=== PATIENT | male | born 1930 | race Hispanic/Latino ===

== ENCOUNTER 2018-05-31 18:56 | Emergency (ER) | payer MEDICARE, BC ==
[2018-05-31 20:17] VITALS: BMI 24.9
--- NOTE | 2018-05-31 20:25 | ED PDOC ---
Arrival/HPI - General Historian: Patient - History of Present Illness Narrative History of Present Illness (Text): 05/31/18 20:21 88M pmhx of AFib (on eliquis 2.5 BID) presents to the ED with a 3 day productive cough, fevers and fatigue. Pt saw Dr Diana in office of friday, was febrile, received Augmentin and has been taking it BID. Pt has not improved, got worse this evening and came to ED with his neighbor. Pt reports sick contacts from his nieces and nephews. ROS: Pos+ cough, fevers, chills, phlegm, fatigue, sick contacts, diarrhea x1, increased urine freq Neg - hemoptysis, sob, nausea, vomiting, abdominal pain, recent travel, Time/Duration: < week Symptom Onset: Gradual Symptom Course: Worsening Activities at Onset: Rest <David Spain - Last Filed: 05/31/18 20:44> <Don Hall - Last Filed: 06/01/18 19:54> - General Chief Complaint: Cough, Cold, Congestion Time Seen by Provider: 05/31/18 19:51 Past Medical History - Provider Review Nursing Documentation Reviewed: Yes - Cardiac Hx Atrial Fibrillation: Yes - Genitourinary/Gynecological Hx Prostate Problems: Yes (enlarged) - Psychiatric Hx Substance Use: No - Anesthesia Hx Anesthesia: Yes Hx Anesthesia Reactions: No <David Spain - Last Filed: 05/31/18 20:44> Family/Social History - Physician Review Nursing Documentation Reviewed: Yes Family/Social History: Unknown Family HX Smoking Status: Never Smoked Hx Alcohol Use: No Hx Substance Use: No <David Spain - Last Filed: 05/31/18 20:44> Family/Social History: No Known Family HX <Don Hall - Last Filed: 06/01/18 19:54> Allergies/Home Meds <David Spain - Last Filed: 05/31/18 20:44> <Don Hall - Last Filed: 06/01/18 19:54> Allergies/Adverse Reactions: Allergies No Known Allergies Allergy (Verified 05/31/18 20:15) Review of Systems - Physician Review All systems were reviewed & negative as marked: Yes - Review of Systems Constitutional: Fatigue, Fevers, Night Sweats Eyes: absent: Photophobia ENT: absent: Sore Throat Respiratory: Cough, Sputum. absent: SOB Cardiovascular: absent: Chest Pain, Palpitations, Syncope Gastrointestinal: Diarrhea (x1). absent: Abdominal Pain Genitourinary Male: Frequency Musculoskeletal: absent: Arthralgias, Myalgias Neurological: absent: Headache Endocrine: absent: Diaphoresis Psychiatric: Normal <David Spain - Last Filed: 05/31/18 20:44> Physical Exam Temperature: Febrile Blood Pressure: Normal Pulse: Tachycardic Respiratory Rate: Normal Appearance: Positive for: Non-Toxic Pain Distress: None Mental Status: Positive for: Alert and Oriented X 3 - Systems Exam Head: Present: Atraumatic, Normocephalic Pupils: Present: PERRL Extroacular Muscles: Present: EOMI Conjunctiva: Present: Normal. No: Injected Mouth: Present: Moist Mucous Membranes Pharnyx: No: ERYTHEMA Neck: Present: Normal Range of Motion Respiratory/Chest: Present: Decreased Breath Sounds (Left Lower Lobe) Cardiovascular: Present: Normal S1, S2, Irregular Rhythm, Tachycardic. No: Murmurs Back: Present: Normal Inspection Upper Extremity: Present: NORMAL PULSES, Capillary Refill < 2s Neurological: Present: GCS=15, CN II-XII Intact, Speech Normal Skin: Present: Warm, Pale Psychiatric: Present: Alert, Oriented x 3, Normal Concentration <David Spain - Last Filed: 05/31/18 20:44> Vital Signs Temp Pulse Resp BP Pulse Ox 05/31/18 18:57 100.5 F H 110 H 18 121/68 98 <Don Hall - Last Filed: 06/01/18 19:54> Medical Decision Making ED Course and Treatment: 05/31/18 20:37 #Possible CAP f/u CBC, CMP, VBG shock, UA, Rapid Flu, CXR #Hx of Afib f/u EKG - RAD Interpretation Radiology Orders: 05/31/18 20:17 CHEST PORTABLE [RAD] Stat - EKG Interpretation Interpreted by ED Physician: Yes Type: 12 lead EKG (98 BPM, A Fib) <David Spain - Last Filed: 05/31/18 20:44> ED Course and Treatment: Impression: Pt seen and evaluated with medical detailist. Aware and agree with HPI, clinical findings, plan, and management. Pt, whose past medical history includes atrial fibrillation, presented for productive cough, fever, and fatigue. Plan: -- EKG -- CXR -- Rapid influenza -- Labs, VBG, blood cultures -- Urinalysis -- Reassess and disposition - Lab Interpretations Lab Results: 05/31/18 20:30 05/31/18 20:30 Lab Results 05/31/18 21:30: Influenza Typ A,B (EIA) Negative for flu a/b 05/31/18 21:00: Urine Color Yellow, Urine Appearance Clear, Urine pH 6.0, Ur Specific Tropic 1.025, Urine Protein Negative, Urine Glucose (UA) Negative, Urine Ketones Negative, Urine Blood Negative, Urine Nitrate Negative, Urine Bilirubin Negative, Urine Urobilinogen 0.2, Ur Leukocyte Esterase Negative 05/31/18 20:30: Sodium 131 L, Chloride 96 L, Potassium 4.4, Carbon Dioxide 27, Anion Gap 12, BUN 18, Creatinine 0.7 L, Est GFR ( Amer) > 60, Est GFR (Non-Af Amer) > 60, Random Glucose 105, Calcium 8.8, Phosphorus 3.6, Magnesium 1.9, Total Bilirubin 0.6, AST 40, ALT 35, Alkaline Phosphatase 64, Total Protein 7.3, Albumin 4.3, Globulin 2.9, Albumin/Globulin Ratio 1.5 05/31/18 20:30: WBC 3.8 L, RBC 4.26, Hgb 13.3 L, Hct 38.9 L, MCV 91.3, MCH 31.2, MCHC 34.2, RDW 12.2, Plt Count 114 L, MPV 9.7, Gran % 71.0 H, Lymph % (Auto) 12.9 L, [place] % (Auto) 15.8 H, Eos % (Auto) 0.3 L, Baso % (Auto) 0.0, Gran # 2.69, Lymph # (Auto) 0.5 L, [place] # (Auto) 0.6, Eos # (Auto) 0.0, Baso # (Auto) 0.00 05/31/18 20:30: pO2 39, VBG pH 7.34, VBG pCO2 51.0, VBG HCO3 27.5, VBG Total CO2 29.1 H, VBG O2 Sat (Calc) 72.6 H, VBG Base Excess 0.9, VBG Potassium 4.1, Sodium 129.0 L, Chloride 95.0 L, Glucose 105, Lactate 0.8, FiO2 21.0, Venous Blood Potassium 4.1 - RAD Interpretation Radiology Orders: 05/31/18 20:17 CHEST PORTABLE [RAD] Stat - Medication Orders Current Medication Orders: Discontinued Medications Azithromycin (Zithromax) 500 mg PO ONCE STA; Protocol Stop: 05/31/18 22:40 <Don Hall - Last Filed: 06/01/18 19:54> - PA / MEDICAL STAFF SERVICES COORDINATOR / Resident Statement [facility] has reviewed & agrees with the documentation as recorded. / has examined the patient and agrees with the treatment plan. <Don Hall - Last Filed: 06/01/18 19:54> Disposition/Present on Arrival - Present on Arrival History of DVT/PE: No History of Uncontrolled Diabetes: No Urinary Catheter: No History of Decub. Ulcer: No History Surgical Site Infection Following: None <David Spain - Last Filed: 05/31/18 20:44> - Present on Arrival Any Indicators Present on Arrival: No History of DVT/PE: No - Disposition Have Diagnosis and Disposition been Completed?: Yes Disposition Time: 00:14 <Don Hall - Last Filed: 06/01/18 19:54> - Disposition Diagnosis: Bronchitis Disposition: HOME/ ROUTINE Condition: STABLE Prescriptions: Benzonatate [Tessalon Perles] 100 mg PO TID PRN #21 sgl PRN Reason: Cough Azithromycin [Zithromax] 250 mg PO DAILY #6 tab Referrals: Brian Diana MD [Primary Care Provider] - Follow up with primary Forms: [employer] (Samoan)
[2018-05-31 20:31] VITALS: BP 121/68; PULSE 110; RESP 18; TEMP 100.5; O2SAT 98
[2018-05-31 20:53] LABS: VENOUS BLOOD GAS BASE EXCESS 0.9 mmol/L (0.0-2.0); VENOUS BLOOD GAS PO2 39 mm/Hg (30-55); VENOUS BLOOD PH 7.34 (7.32-7.43)
[2018-05-31 21:01] LABS: EOS % 0.3 % (1.5-5.0); GRAN # 2.69 (1.4-6.5); HEMOGLOBIN 13.3 g/dL (14.0-18.0); LYMPH # 0.5 (1.2-3.4); LYMPH % 12.9 % (22.0-35.0); MEAN CELL VOLUME 91.3 fl (80.0-105.0); MEAN CORPUSCULAR HEMOGLOBIN 31.2 pg (25.0-35.0); MEAN CORPUSCULAR HGB CONC 34.2 g/dl (31.0-37.0); MEAN PLATELET VOLUME 9.7 fl (7.0-11.0); MONO # 0.6 (0.1-0.6); MONO % 15.8 % (1.0-6.0); RBC 4.26 10^6/uL (3.5-6.1); RED CELL DISTRIBUTION WIDTH 12.2 % (11.5-14.5); WHITE BLOOD COUNT 3.8 10^3/uL (4.5-11.0)
[2018-05-31 21:03] LABS: ALB/GLOB RATIO 1.5 (1.1-1.8); ALBUMIN 4.3 g/dL (3.0-4.8); ALT/SGPT 35 U/L (7-56); AST/SGOT 40 U/L (17-59); BLOOD UREA NITROGEN 18 mg/dL (7-21); CALCIUM 8.8 mg/dL (8.4-10.5); GFR NON-AFRICAN AMERICAN > 60
[2018-05-31 21:20] LABS: URINE APPEARANCE CLEAR (CLEAR); URINE BILIRUBIN NEGATIVE (NEGATIVE); URINE BLOOD NEGATIVE (NEGATIVE); URINE COLOR YELLOW (YELLOW); URINE GLUCOSE (UA) NEGATIVE (NEGATIVE); URINE LEUKOCYTE ESTERASE NEGATIVE Leu/uL (NEGATIVE); URINE PROTEIN NEGATIVE mg/dL (<30 mg/dL); URINE UROBILINOGEN 0.2 E.U./dL (<1 E.U./dL)
--- NOTE | 2018-06-01 09:07 | RAD ---
Date of service: 05/31/2018 HISTORY: cough, decreased breath sounds LLL COMPARISON: 09/02/2013 FINDINGS: LUNGS: No active pulmonary disease. PLEURA: No significant pleural effusion identified, no pneumothorax apparent. CARDIOVASCULAR: No aortic atherosclerotic calcification present. Normal cardiac size. No pulmonary vascular congestion. OSSEOUS STRUCTURES: No significant abnormalities. VISUALIZED UPPER ABDOMEN: Normal. OTHER FINDINGS: None. IMPRESSION: No active disease.
--- NOTE | 2018-06-01 10:11 | CARD ---
APPROVED REPORT Date of service: 05/31/2018 EKG Measurement Heart [id number] <Conclusion> Atrial fibrillation Rightward axis Low voltage QRS Cannot rule out Anterior infarct, age undetermined Abnormal ECG
== END 2018-06-01 00:14 | disposition home or self-care (01) ==
LOC: ED 18:56
DX: J40 Bronchitis, not specified as acute or chronic (principal); I48.91 Unspecified atrial fibrillation; Z79.01 Long term (current) use of anticoagulants